=== PATIENT | female | born 1975 | race Caucasian/White ===

== ENCOUNTER 2017-12-01 09:55 | Outpatient (CLI) | payer BC ==
--- NOTE | 2017-12-03 21:13 | ULT ---
RIGHT UPPER QUADRANT ULTRASOUND 12/01/17 Reading was delayed pending discussion with the ultrasound technol. Ultrasonography of the right upper quadrant was performed. The liver showed no focal abnormality. It measured 14.5 cm in oblique sagittal length which is acceptable. There were no dilated ducts. Portal venous flow was toward the liver as expected. The gallbladder contained some internal echoes, but they appear more like sludge than stones. The wal l was not thick. The common bile duct was 5 mm in caliber which is normal. The right kidney appears normal and is 9.3 cm in length. The pancreas was grossly normal in the midli ne but much of it was obscured by gas. IMPRESSION: Some sludge in the gallbladder but no definite acute findings otherwise. POS: HOME
== END 2017-12-01 09:56 | disposition home or self-care (01) ==
LOC: BURULT 09:55
PROVIDERS: ATTEND Family Medicine
DX: R10.11 Right upper quadrant pain (principal); K83.8 Other specified diseases of biliary tract
CPT/HCPCS: 76705

== ENCOUNTER 2019-04-18 10:50 | Outpatient (CLI) | payer BC ==
--- NOTE | 2019-04-18 17:06 | RAD ---
RIGHT ANKLE THREE VIEWS: 04/18/19 No fracture or joint abnormality was seen. All bones appear intact. IMPRESSION: No acute bony finding. POS: HOME
== END 2019-04-18 10:51 | disposition home or self-care (01) ==
LOC: BURRAD 10:50
PROVIDERS: ATTEND Family Medicine
DX: S80.11XA Contusion of right lower leg, initial encounter (principal)

== ENCOUNTER 2023-10-03 07:26 | Emergency (ER) | payer BC ==
[2023-10-03] MEDS ORDERED: Fluorescein Opthalmic Strip ONE (07:37)
[2023-10-03] MEDS ORDERED: Tetracaine 0.5% PF 4 ML BOT ONE (07:37)
== END 2023-10-03 07:53 | disposition home or self-care (01) ==
LOC: BURERS 07:26
DX: H10.89 Other conjunctivitis (principal)
CPT/HCPCS: 99283